=== PATIENT | male | born 1980 | race Two or more races ===

== ENCOUNTER 2023-01-06 22:09 | Emergency (ER) | payer SELFPAY ==
[~2023-01-06] VITALS: Ht 165.1 cm; Wt 85.5 kg
[2023-01-06 22:35] VITALS: BP 146/97
[2023-01-06] MEDS ORDERED: KETOROLAC TROMETH 30 MG/ML 1ML VIAL IM ONE (23:45)
== END 2023-01-07 00:04 | disposition home or self-care (01) ==
LOC: EDBD 22:09 → ER 22:09
DX: S00.83XA Contusion of other part of head, initial encounter (principal); Y04.2XXA Assault by strike against or bumped into by another person, initial encounter; Y93.89 Activity, other specified; Y92.89 Other specified places as the place of occurrence of the external cause; Y99.8 Other external cause status
CPT/HCPCS: 70450; 70486; 72125; 73030; 96372; 99285; J1885